=== PATIENT | male | born 1945 | race Caucasian/White ===

== ENCOUNTER → 2019-03-11 | Outpatient (CLI) | payer MEDICARE, OTHER ==
[~2019-03-11] MED LIST: ALDACTONE 25MG25 M1 PO; AMIODARONE; ASPIRIN 32325 MG/TA1 PO; ASPIRIN 32325 MG/TAB PO; ASPIRIN 81M81 MG/TA2 PO; BRILINTA90 MG PO; CEPHALEXIN500 M1 PO; COMBIVENT INH14.7 GM IH; CORDARONE200 MG/TAB PO; ELIQUIS 2.5 PO; ELIQUIS 5MG PO; ENTRESTO 97 MG1 EACH PO; LASIX 20MG TABL20 MG PO; LISINOPRIL10 MG PO; LOPRESSOR 550 MG/TAB PO; METOPROLOL XL PO; MULTAQ400 MG PO; NITROSTAT0.4 MG SL; NITROSTAT0.4 MG/TAB SL; PACERONE100 MG PO; PACERONE200 MG PO; PLAVIX 75MG TAB75 MG PO; PROTONIX 40MG T40 MG PO; SIMVASTATIN40 MG PO; SIMVASTATIN80 MG PO; TAPAZOLE10 MG PO; TOPROL XL 25MG25 MG PO; TOPROL XL25 MG PO; XARELTO20 MG PO; ZESTRIL 10MG10 MG PO; ZESTRIL5 MG PO; ZOCOR 40MG40 MG PO; ZOCOR PO; ZOCOR40 MG PO
== END ==
LOC: COL.RAD 08:31
DX: Z01.812 Encounter for preprocedural laboratory examination (principal); C61 Malignant neoplasm of prostate; N26.1 Atrophy of kidney (terminal)
CPT/HCPCS: A9503; Q9967

== ENCOUNTER → 2019-04-26 | Outpatient (CLI) | payer MEDICARE, OTHER ==
[2019-04-26 17:53] LABS: HEMATOCRIT 39.1 % (42.0-52.0); HEMOGLOBIN 12.8 g/dl (13.5-18.0); MEAN CELL VOLUME 97 fl (80.0-100.0); MEAN CORPUSCULAR HEMOGLOBIN 32 pg (27.0-31.0); MEAN CORPUSCULAR HGB CONC 33 g/dl (33.0-37.0); MEAN PLATELET VOLUME 9.8 fl (7.4-10.4); PLATELET COUNT 245 K/mm3 (130-400); RED BLOOD COUNT 4.04 M/mm3 (4.20-5.60); REDCELL DISTRIBUTION WIDTH-CV 13.1 % (11.5-14.5)
[2019-04-26 18:07] LABS: ANION GAP 15 mmol/L (7-16); BLOOD UREA NITROGEN 53 mg/dL (9-20); CARBON DIOXIDE 23 mmol/L (22-30); CHLORIDE 103 mmol/L (98-107); CREATININE, serum 3.27 (0.66-1.25); GLUCOSE 107 mg/dL (74-106); POTASSIUM 4.9 mmol/L (3.4-5.0); SODIUM 141 mmol/L (137-145)
[2019-04-26 18:28] LABS: TROPONIN-I < 0.012 ng/mL (0.000-0.035)
== END ==
LOC: COL.RAD 17:10
PROVIDERS: Internal Medicine Interventional Cardiology
DX: I20.9 Angina pectoris, unspecified (principal); Z95.810 Presence of automatic (implantable) cardiac defibrillator

== ENCOUNTER → 2019-04-29 | Outpatient (CLI) | payer MEDICARE, OTHER ==
[2019-04-29 14:32] LABS: CALCIUM 9.3 mg/dL (8.4-10.2); CREATININE, serum 1.7 (0.66-1.25); POTASSIUM 5.1 mmol/L (3.4-5.0)
== END ==
LOC: COL.LAB 11:21
PROVIDERS: Internal Medicine Interventional Cardiology
DX: I20.9 Angina pectoris, unspecified (principal)

== ENCOUNTER → 2019-05-23 | Outpatient (CLI) | payer MEDICARE, OTHER ==
[2019-05-23 09:40] LABS: CALCIUM 9.9 mg/dL (8.4-10.2); CREATININE, serum 1.9 (0.66-1.25); POTASSIUM 5.4 mmol/L (3.4-5.0)
== END ==
LOC: COL.LAB 09:06
PROVIDERS: Internal Medicine Interventional Cardiology
DX: I50.22 Chronic systolic (congestive) heart failure (principal)

== ENCOUNTER → 2019-07-28 | Outpatient (CLI) | payer MEDICARE, OTHER ==
[~2019-07-28] MED LIST changes: +ALDACTONE50 MG PO; +B-121000 MCG PO; +FOLIC ACID 11 MG/TA1 PO
[2019-07-28 11:12] LABS: HEMOGLOBIN 10.3 g/dl (13.5-18.0); MEAN CELL VOLUME 99 fl (80.0-100.0); MEAN CORPUSCULAR HEMOGLOBIN 31 pg (27.0-31.0); MEAN CORPUSCULAR HGB CONC 32 g/dl (33.0-37.0); MEAN PLATELET VOLUME 10.5 fl (7.4-10.4); PLATELET COUNT 213 K/mm3 (130-400); REDCELL DISTRIBUTION WIDTH-CV 12.2 % (11.5-14.5)
[2019-07-28 11:16] LABS: HEMATOCRIT 32.6 % (42.0-52.0)
[2019-07-28 11:21] LABS: CALCIUM 9.8 mg/dL (8.4-10.2); CREATININE, serum 1.18 (0.66-1.25); POTASSIUM 5.3 mmol/L (3.4-5.0)
== END ==
LOC: COL.LAB 10:34
PROVIDERS: Hospitalist
DX: N17.9 Acute kidney failure, unspecified (principal)

== ENCOUNTER 2020-04-14 11:53 | Emergency (ER) | payer MEDICARE, OTHER ==
[~2020-04-14] VITALS: Ht 185.4 cm; Wt 81.4 kg
[~2020-04-14 11:53] MED LIST changes: +ZOFRAN 4MG T4 MG/TAB PO
[2020-04-14 12:02] VITALS: TEMP 97
[2020-04-14 13:21] VITALS: BP 103/65; PULSE 60
== END 2020-04-14 13:22 | disposition home or self-care (01) ==
LOC: COL.ER 11:53
DX: S80.01XA Contusion of right knee, initial encounter (principal); S70.11XA Contusion of right thigh, initial encounter; S70.01XA Contusion of right hip, initial encounter; S80.11XA Contusion of right lower leg, initial encounter; Z79.01 Long term (current) use of anticoagulants; Z79.02 Long term (current) use of antithrombotics/antiplatelets; W10.9XXA Fall (on) (from) unspecified stairs and steps, initial encounter; Y92.009 Unspecified place in unspecified non-institutional (private) residence as the place of occurrence of the external cause

== ENCOUNTER → 2022-05-08 | Outpatient (CLI) | payer MEDICARE, OTHER | LOC: COL.RAD 16:03 | DX: Z71.2 Person consulting for explanation of examination or test findings (principal) ==